=== PATIENT | female | born 1980 | race Caucasian/White ===

== ENCOUNTER 2018-10-19 16:36 | Emergency (ER) | payer SELFPAY ==
[~2018-10-19] VITALS: Ht 149.9 cm; Wt 45.5 kg
[2018-10-19 16:39] VITALS: Ht 149.9 cm; Wt 45.5 kg
[2018-10-19 16:58] LABS: BASOPHILS 0.4 % (0-2); EOSINOPHILS 1.2 % (0-7); HEMATOCRIT 38.6 % (36.0-48.0); HEMOGLOBIN 13.6 g/dL (12-16); IMMATURE GRANULOCYTES 0.2 % (0-5); LYMPHOCYTES 31.8 % (15-50); MCH 29.6 pg (26.0-34.0); MCHC 35.2 g/dL (31.0-37.0); MCV 84.1 fL (80.0-100.0); MEAN PLATELET VOLUME 9.9 fL (7.4-10.4); NEUTROPHILS 57.4 % (40-80); PLATELET COUNT 677 10x3/uL (130-400); RBC 4.59 10x6/uL (4.00-5.40); WBC 13.7 10x3/uL (4.8-10.8)
[2018-10-19 17:48] LABS: ALBUMIN 4.2 g/dL (3.4-5.0); ALKALINE PHOSPHATASE 57 U/L (46-116); ALT (SGPT) 15 U/L (10-68); CALC OSMOLALITY 280 mosm/kg (275-300); CALCIUM 9.7 mg/dL (8.5-10.1); CARBON DIOXIDE 23.1 mmol/L (21.0-32.0); CHLORIDE - SERUM 103 mmol/L (98-107); CREATININE - SERUM 1.2 mg/dL (0.6-1.3); GLUCOSE 152 mg/dL (74-106); PROTEIN - SERUM 7.1 g/dL (6.4-8.2); SODIUM 139 mmol/L (136-145); UREA NITROGEN 13 mg/dL (7-18); eGFR NON AFRICAN AMERICAN 54 mL/min (90-120)
[2018-10-19 17:57] LABS: CKMB 2.2 U/L (0.0-3.6); CREATINE KINASE 137 UL (21-215); MAGNESIUM - SERUM 1.8 mg/dL (1.8-2.4)
[2018-10-19 18:00] LABS: TROPONIN-I < 0.017 ng/mL (0.000-0.060)
[2018-10-19 18:00] LABS: APPEARANCE CLEAR (CLEAR); BILIRUBIN NEGATIVE (NEGATIVE); COLOR STRAW (YELLOW); GLUCOSE NEGATIVE (NEGATIVE); KETONE NEGATIVE (NEGATIVE); NITRITE NEGATIVE (NEGATIVE); PROTEIN TRACE mg/dL (NEGATIVE); SPECIFIC GRAVITY 1.005 (1.005-1.020); UROBILINOGEN NORMAL (NORMAL)
[2018-10-19 18:02] LABS: BACTERIA FEW /hpf (NONE SEEN); EPITHELIAL CELLS OCC /hpf (0-5); RED CELLS - URINE 0-5 /hpf (0-5); WHITE CELLS - URINE 0-5 /hpf (0-5)
[2018-10-19 18:11] LABS: UDS - AMPHET POSITIVE QUAL (NEGATIVE); UDS - BARB NEGATIVE QUAL (NEGATIVE); UDS - BENZO NEGATIVE QUAL (NEGATIVE); UDS - COCAINE NEGATIVE QUAL (NEGATIVE); UDS - OPIATE NEGATIVE QUAL (NEGATIVE); UDS - PCP NEGATIVE QUAL (NEGATIVE); UDS - THC NEGATIVE QUAL (NEGATIVE)
[2018-10-19 18:13] LABS: PROTIME 14.6 SECONDS (11.6-15.0)
[2018-10-19 18:14] LABS: APTT 29.4 SECONDS (22.8-39.4); INR 1.19 (0.85-1.17)
[2018-10-19] MEDS ORDERED: METOPROLOL TART25 MG PO (18:48)
[2018-10-19 19:21] VITALS: BP 133/93
== END 2018-10-19 19:21 | disposition home or self-care (01) ==
LOC: D.ER 16:36
PROVIDERS: Family Medicine
DX: I47.1 Supraventricular tachycardia (principal); F15.10 Other stimulant abuse, uncomplicated; E87.6 Hypokalemia